=== PATIENT | male | born 1955 | race Caucasian/White ===

== ENCOUNTER 2018-04-21 05:26 | Day surgery (SDC) | payer BC ==
[~2018-04-21] VITALS: Ht 162.6 cm; Wt 74.4 kg
--- NOTE | ~2018-04-21 | O ---
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 PROCEDURE: Enucleation of left eye with implantation of 18-mm Medpor sphere with muscles attached to implant, conjunctivoplasty and temporary tarsorrhaphy. SURGEON: Santana Ragland M.D. AIR QUALITY TECHNICIAN: None. ANESTHESIA: General. COMPLICATIONS: None. 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 He presents today for removal of the left eye with reconstruction of the socket in order to allow him to comfortably wear prosthesis. Informed consent was obtained to include but not limited to the potential risk for bleeding, infection, the need for further surgery or treatment. DESCRIPTION OF PROCEDURE: The patient was taken to the operating room, where general anesthesia was administered. The left socket was then anesthetized with Xylocaine with epinephrine mixed with Marcaine and Wydase. The lid margin was anesthetized with the same anesthetic mixture. The patient was subsequently prepped and draped in the usual sterile fashion. He was given antiemetics at the beginning of the case. After being sterilely prepped and draped, a lid speculum was placed in the left eye while a moistened sponge was placed on the right. A 360-degree conjunctival peritomy was obtained, trying to preserve as much of the conjunctival tissue at the limbus as possible. The oblique quadrants were then bluntly dissected. The lateral rectus muscle was then isolated on a muscle hook and cleaned of its surrounding connective tissue. A 5-0 double-armed Vicryl suture was then used to pass through the insertion of the muscle with locking bites at each margin. It was then transected from the globe and retracted out of the field with a Navneet. The inferior, medial and superior rectus muscles were similarly isolated and [address] [address] OPERATIVE REPORT Name: RICARDO BRIGHT Gerhard Room #: 150-2 [facility]#: [id number] Admission: 04/21/18 Attend Phys: Santana Ragland MD Discharge: Date of : 51 Report #: [id number] drawn out of the field with a 5-0 double-armed Vicryl suture. A 5-0 silk suture was then passed through the insertion of the lateral rectus muscle and used for traction. The superior and inferior oblique muscles were isolated and detached from the globe where they were attached with a monopolar cautery current. The optic nerve was then clamped for 3 minutes. The nerve was then clamped for 3 more minutes. The nerve was then clamped one final time for 2 minutes. The optic nerve was then cut with a Garcia scissor. Minimal bleeding ensued. A 20-mm sphere sizer appeared to be somewhat large for the socket, so an 18-mm Medpor sphere was then vacuum aspirated in antibiotic irrigation solution and subsequently reposited behind posterior tenons with the aid of an easy glide introducer. Posterior tenons were then closed over the Medpor with interrupted 5-0 Vicryl sutures. The medial and lateral rectus muscles were attached to each other with interrupted 5-0 Vicryl sutures. The superior and inferior rectus muscles were attached to the medial and lateral rectus muscles with interrupted 5-0 Vicryl sutures. Anterior tenons were then closed with interrupted 5-0 Vicryl sutures. The conjunctiva was then undermined to allow conjunctivoplasty to be accomplished. The conjunctiva was mobilized from superonasally, which appeared to be the area that was scarred. Hemostasis was then re-achieved. The conjunctival flap was then advanced and closed over the anterior tenons closure with a running 6-0 Vicryl suture. A medium conformer was placed on the eye followed by erythromycin ointment. A temporary tarsorrhaphy was then fashioned from a short section of IV tubing and a double arm pass from a 5-0 nylon suture. A Telfa pad was then placed on the eye followed by 2 eye patches were held in place with silk tape and an adhesive accelerant. The patient was subsequently transported to the recovery area having tolerated the procedures well with no anesthetic or operative complications being noted. By: [id number] Santana Ragland MD /nt
[~2018-04-21 05:26] MED LIST: ASPIR 8181 MG PO; GLUCOPHAGE1000 MG PO; LISINOPRIL2.5 MG PO; TOPROL XL25 MG PO
[2018-04-21 08:00] VITALS: BP 154/73
== END 2018-04-21 10:40 | disposition home or self-care (01) ==
LOC: TBA 05:26 → OR 05:26
DX: H11.242 Scarring of conjunctiva, left eye (principal); I10 Essential (primary) hypertension; I25.2 Old myocardial infarction; E11.9 Type 2 diabetes mellitus without complications; B19.20 Unspecified viral hepatitis C without hepatic coma; F17.210 Nicotine dependence, cigarettes, uncomplicated; Z98.41 Cataract extraction status, right eye; Z88.0 Allergy status to penicillin; Z79.899 Other long term (current) drug therapy; Z88.8 Allergy status to other drugs, medicaments and biological substances; Z95.2 Presence of prosthetic heart valve; Z95.1 Presence of aortocoronary bypass graft; Z86.73 Personal history of transient ischemic attack (TIA), and cerebral infarction without residual deficits; Z91.040 Latex allergy status; Z79.82 Long term (current) use of aspirin
CPT/HCPCS: 50010; 50101; 50386; 50398; 51636; 51854; 53500; 56527; 56528; 56531; 64037; 70005